=== PATIENT | female | born 1935 | race Hispanic/Latino ===

== ENCOUNTER 2017-11-07 20:29 | Inpatient (IN) | payer OTHER ==
[~2017-11-07] VITALS: Ht 154.9 cm; Wt 65.8 kg
[2017-11-07 21:23] LABS: ABSOLUTE BASOPHIL COUNT 0.1 /CUMM (0.0-0.2); ABSOLUTE EOSINOPHIL COUNT 0.2 /CUMM (0.0-0.7); ABSOLUTE GRANULOCYTE CT 6.8 /CUMM (1.4-6.5); ABSOLUTE LYMPH COUNT 1.6 /CUMM (1.2-3.4); ABSOLUTE MONOCYTE COUNT 0.9 /CUMM (0.10-0.60); BASOPHIL % 1.5 % (0.0-2.0); EOSINOPHIL % 2.3 % (0-5); GRANULOCYTE % 70.5 % (42.2-75.2); MEAN CORPUSCULAR HGB 27.6 PG (27.0-31.0); MEAN CORPUSCULAR HGB CONC 32.8 G/DL (33.0-37.0); MEAN CORPUSCULAR VOLUME 84.3 FL (81.0-99.0); MEAN PLATELET VOLUME 6.9 FL (7.4-10.4); PLATELET COUNT 511 /CUMM (130-400); RBC DISTRIBUTION WIDTH 13.9 % (11.5-14.5); RED BLOOD CELL CT 3.92 /CUMM (4.20-5.40); WHITE BLOOD CELL COUNT 9.6 /CUMM (4.8-10.8)
--- NOTE | 2017-11-07 21:29 | ED DYSPNEA/ASTHMA COMPLAINT ---
History of Present Illness General Chief Complaint: Dyspnea (COPD, CHF, Other) Stated Complaint: DIFF BREATHING Source: patient, family Exam Limitations: language barrier Vital Signs & Intake/Output Vital Signs & Intake/Output Vital Signs Date Time Temp Pulse Resp B/P B/P Pulse O2 O2 Flow FiO2 Mean Ox Delivery Rate 11/07 2239 95 18 169/73 99 Nasal 3.0L Cannula 11/078 98 Nasal 2.0L Cannula 11/071 86 Room Air 11/07 2037 96.9 107 18 194/79 95 Nasal 2.0L Cannula ED Intake and Output 11/08 0000 11/07 1200 Intake Total Output Total Balance Patient 132 lb Weight Weight Reported by Patient Measurement Method Allergies Coded Allergies: NO KNOWN ALLERGIES (12/18/12) Triage Note: PT FROM HOME C/O SOB THAT BEGAN 4 DAY PRIOR THAT HAS PROGRESSIVELY GOTTEN WORSE. PT DOES NOT SPEAK ARGENTINE. PT HAS 2 DAUGHTERS WITH HER THAT ARE TRANSLATING FOR HER. PTS DAUGHTER STATES FEBRILE 2 DAYS AGO, AFEBRILE IN TRIAGE 96.9. PTS DAUGHTER STATES PT MEDICATED WITH TYLENOL COLD AND FLU EVERY 6 HRS LAST MEDICATED WITH IN THE AM. PT AT LABORATORY TESTER 86% ON RA. IN TRIAGE PT PLACED ON NC 2L 02 95%. PT ABLE TO SPEAK IN FULL SENTENCES, NO ACUTE DISTRESS NOTED. PTS BP ELEVATED 194/79 WITH HX OF. Triage Nurses Notes Reviewed? yes Onset: Abrupt Duration: day(s): (4), constant, continues in ED, getting worse Timing: single episode today Severity: mild, moderate Activities at Onset: none Prior Episodes/Possible Cause: occasional episodes Modifying Factors: Improves With: rest. Worsens With: movement. Associated Symptoms: cough, wheezing, weakness LMP (ages 10-50): post menopausal, unknown : No Patient currently breastfeeds: No HPI: 82-year-old female past medical history of hypertension, hyperlipidemia, COPD presents for evaluation of cough and shortness of breath. Patient reports symptoms started about 4 days ago and persistent. She reports a cough productive of yellow sputum and wheezing. She'll using her inhalers without any improvement. She uses oxygen at nighttime only 2 L nasal cannula however over the past few days she has required oxygen 24 7. She reports that shortness breath gets worse on exertion improved somewhat at rest but is present constantly. No hemoptysis or chest pain she does report some congestion and low -grade temps at home. No lower extremity edema and surgery recent trauma. No chest pain. She does not have a SIG cardiac history. (Stefano Baker) Past History Travel History Traveled to [place] past 21 day No Medical History Any Pertinent Medical History? see below for history Cardiovascular: hypertension, hyperlipidemia Respiratory: COPD History of MRSA: No History of VRE: No History of CDIFF: No Surgical History Surgical History: non-contributory Psychosocial History Who do you live with Family Services at Home None What is your primary language Frisian Tobacco Use: Never used Family History Hx Contributory? No (Stefano Baker) Review of Systems Review of Systems Constitutional: Reports: fever, malaise, weakness. EENTM: Reports: nasal congestion. Respiratory: Reports: see HPI, cough, short of breath, sputum production, wheezing. Cardiovascular: Reports: no symptoms. GI: Reports: no symptoms. Genitourinary: Reports: no symptoms. Musculoskeletal: Reports: no symptoms. Skin: Reports: no symptoms. Neurological/Psychological: Reports: no symptoms. Hematologic/Endocrine: Reports: no symptoms. Immunologic/Allergic: Reports: no symptoms. All Other Systems: Reviewed and Negative (Stefano Baker) Physical Exam Physical Exam General Appearance: well developed/nourished, no apparent distress, alert, awake Head: atraumatic, normal appearance Eyes: Bilateral: normal appearance, PERRL, EOMI. Ears, Nose, Throat: normal pharynx, normal ENT inspection, hearing grossly normal Neck: normal inspection, supple, full range of motion Respiratory: chest non-tender, no respiratory distress, rhonchi, wheezing Cardiovascular: regular rate/rhythm, normal peripheral pulses Peripheral Pulses: 2+ radial (R), 2+ radial (L) Gastrointestinal: normal bowel sounds, soft, non-tender, no organomegaly Extremities: normal inspection, normal range of motion, no edema Neurologic/Psych: no motor/sensory deficits, awake, alert, oriented x 3, normal gait (BECOME DYSPNIC ) Skin: intact, normal color, warm/dry Lymphatic: no anterior cervical kayleigh Core Measures ACS in differential dx? No CVA/TIA Diagnosis No Sepsis Present: No Sepsis Focused Exam Completed? No (Stefano Baker) Progress Differential Diagnosis: asthma, AMI, bronchitis, costochondritis, CHF, COPD, musculoskeletal pain, pulmonary embolism, pneumonia, pneumothorax, unstable angina Plan of Care: Orders Procedure Date/time Status D-DIMER 11/08 2043 Complete URINALYSIS 11/07 2042 Active TROPONIN LEVEL 11/07 2042 Complete COMPREHENSIVE METABOLIC PANEL 11/07 2042 Complete CBC WITHOUT DIFFERENTIAL 11/07 2042 Complete EKG 11/07 2042 Active Laboratory Tests 11/07/172114: Anion Gap 10, Estimated GFR 60, BUN/Creatinine Ratio 12.2, Glucose 120 H, Calcium 8.7, Total Bilirubin 0.4, AST 29, ALT 35, Alkaline Phosphatase 101, Troponin I < 0.01, Total Protein 6.8, Albumin 3.3 L, Globulin 3.5, Albumin/ Globulin Ratio 0.9 L, D-Dimer High Sensitivty 349 H, CBC w Diff NO MAN DIFF REQ, RBC 3.92 L, MCV 84.3, MCH 27.6, MCHC 32.8 L, RDW 13.9, MPV 6.9 L, Gran % 70.5, Lymphocytes % 16.2 L, Monocytes % 9.5 H, Eosinophils % 2.3, Basophils % 1.5, Absolute Granulocytes 6.8 H, Absolute Lymphocytes 1.6, Absolute Monocytes 0.9 H, Absolute Eosinophils 0.2, Absolute Basophils 0.1 Patient seen and evaluated. She is here with wheezing rhonchi shortness of breath. Symptoms worse on exertion. 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 We 'll check basic labs chest x-ray patient indicated with DuoNeb Solu-Medrol Zithromax. Blood work does not show any significant acute findings. She does have mildly elevated platelets age-adjusted d-dimer is negative troponin negative remaining blood work is not showing any significant acute changes. Chest x-ray is clear. EKG shows nonspecific ST-T wave changes but shows improvement from previous. Patient was ambulated in the emergency department and desaturated to 90% on room air. She became visibly dyspneic. She will be admitted to the hospital for further evaluation and treatment of his COPD exacerbation. She'll require IV antibiotics and IV Solu-Medrol and DuoNeb's pulmonary consult serial labs. Case discussed with Dr. BAUTISTA HE agrees. Diagnostic Imaging: Viewed by Me: Radiology Read. Discussed w/RAD: Radiology Read. CXR Impression: PATIENT: BIB HERNANDEZ PRESENT AGE: 82 PATIENT ACCOUNT NO: [id number] : 35 LOCATION: [facility] ORDERING PHYSICIAN: Stefano BOBBY SERVICE DATE: 11/07/17 EXAM TYPE: RAD - XRY-PORTABLE CHEST XRAY EXAMINATION: XR PORTABLE CHEST CLINICAL INFORMATION: 82-year-old woman with shortness of breath. COMPARISON: 01/14/2016 chest radiograph, [address] TECHNIQUE: Portable frontal view of the chest was obtained. FINDINGS: There is stable irregular biapical parenchymal scarring. A known right lower lobe pulmonary nodule is not visible radiographically. The lungs are hyperinflated. No definite focal consolidation or overt edema is appreciated. Cardiomediastinal contours are within the range of normal. There are no large pleural effusions. IMPRESSION: No radiographic evidence of an acute cardiopulmonary process. DICTATED BY: Araceli Davenport MD DATE/TIME DICTATED:11/07/172137 CLINICAL CYTOGENETICIST SCIENTIST:MARCELLO DATE/TIME TRANSCRIBED:11/07/172137 CONFIDENTIAL, DO NOT COPY WITHOUT APPROPRIATE AUTHORIZATION. <Electronically signed in Other Vendor System> SIGNED BY: Araceli Davenport MD 11/07/172143 Initial ED EKG: normal sinus rhythm (RATE 97), NON-SPECIFIC T WAVE ABN ANT-LAT LEADS (Stefano Baker) Departure Departure Disposition: STILL A PATIENT Condition: Stable Clinical Impression Primary Impression: COPD exacerbation Referrals: Destini Abbasi (PCP/Family) Departure Forms: Customer Survey General Discharge Information Admission Note Spoke With: Jarred BURNHAM,[place] Documentation of Exam: Documentation of any treatments & extenuating circumstances including Concerns Regarding Discharge (functional status, medication knowledge or non-compliance, living conditions, etc.) that warrant an admission rather than observation: [IV antibiotics, IV Solu-Medrol, DuoNeb's, pulmonology, serial labs, monitoring of vital signs, oxygen adjustment, medication adjustment. Patient desaturated to 90% on room air while walking she became visibly dyspneic] (Stefano Baker) PA/SMALL MACHINE BINDERY OPERATOR Co-Sign Statement Statement: ED Attending supervision documentation- x I saw and evaluated the patient. I have also reviewed all the pertinent lab results and diagnostic results. I agree with the findings and the plan of care as documented in the PA's/SMALL MACHINE BINDERY OPERATOR's documentation. COPD with GARCIA, increased work of breathing at rest. [] I have reviewed the ED Record and agree with the PA's/SMALL MACHINE BINDERY OPERATOR's documentation. [] Additions or exceptions (if any) to the PAs/SMALL MACHINE BINDERY OPERATOR's note and plan are summarized below: [] (Basilia BURNHAM,Donald) Critical Care Note Critical Care Note Critical Care Time: non-applicable (Stefano Baker)
--- NOTE | 2017-11-07 21:44 | RADIOLOGY REPORT ---
EXAMINATION: XR PORTABLE CHEST CLINICAL INFORMATION: 82-year-old woman with shortness of breath. COMPARISON: 01/14/2016 chest radiograph, 08/16/[address] TECHNIQUE: Portable frontal view of the chest was obtained. FINDINGS: There is stable irregular biapical parenchymal scarring. A known right lower lobe pulmonary nodule is not visible radiographically. The lungs are hyperinflated. No definite focal consolidation or overt edema is appreciated. Cardiomediastinal contours are within the range of normal. There are no large pleural effusions. IMPRESSION: No radiographic evidence of an acute cardiopulmonary process.
--- NOTE | 2017-11-07 23:47 | History & Physical ---
Lety Candelaria MD,[facility] 11/07/17 8129: General Information and HPI MD Statement: I have seen and personally examined BIB HERNANDEZ and documented this H&P. The patient is a 82 year old F who presented with a patient stated chief complaint of [dyspnea]. Source of Information: patient, family Exam Limitations: language barrier History of Present Illness: Patient is a Georgian speaking 82 Y F with PMH of HTN, Hlip, COPD (on 2L o2 at night time, follows Dr. Briggs), glaucoma presented to the ED with CC of shortness of breathing. Patient is a Georgian-speaking and daughter present at the bedside contributing in history taking. Basically patient reported symptoms of upper respiratory tract infection, sneezing about 1 week ago. She also had fever of 101 and chills. For the last 2 days patient had increased shortness of breathing, weakness, cough associated with wide/greenish sputum. She used inhalers with no improvement, and she needed to use O2 supplement all the time for the last 2 days. She did not visited any doctor for URTI and was taking tynelol and OTC cold medications. With worsening of the symptoms she decided to come to ED. She denied any chest pain, however reported mild shortness with cough. She had nausea but no vomiting. She was also in contact with family member with upper respiratory tract infection symptoms. In baseline patient is lives with her daughters and is pretty independent in ADLs. Last Echo in 2012 normal EF with upper limit normal pulm HTN. She denied any history of actively smoking. Allergies/Medications Allergies: Coded Allergies: NO KNOWN ALLERGIES (12/18/12) Past History Travel History Traveled to [place] past 21 day No Medical History Cardiovascular: hypertension, hyperlipidemia Respiratory: COPD History of MRSA: No History of VRE: No History of CDIFF: No Surgical History Surgical History: non-contributory Past Family/Social History Psychosocial History Services at Home: None Review of Systems Review of Systems Constitutional: Reports: see HPI. Exam & Diagnostic Data Last 24 Hrs of Vital Signs/I&O Vital Signs Date Time Temp Pulse Resp B/P B/P Pulse O2 O2 Flow FiO2 Mean Ox Delivery Rate 11/08 0233 98.2 103 20 186/82 97 11/08 0103 96.8 100 18 173/72 97 Nasal 2.0L Cannula 11/07 2238 95 18 169/73 99 Nasal 3.0L Cannula 11/08 2147 98 Nasal 2.0L Cannula 11/07 2040 86 Room Air 11/07 2037 96.9 107 18 194/79 95 Nasal 2.0L Cannula Intake & Output 11/08 0800 11/08 0000 11/07 1600 Intake Total Output Total Balance Patient 132 lb Weight Weight Reported by Patient Measurement Method Physical Exam General Appearance Alert, Oriented X3, Cooperative, No Acute Distress Skin Temp/Moisture Exam: Warm/Dry Sepsis Skin Exam (color): Normal for Ethnicity HEENT Atraumatic, EOMI, pupils reactive Cardiovascular Normal S1, Normal S2 Lungs wheezing bilateral Abdomen Soft, No Tenderness Neurological Normal Speech Extremities No Edema Last 24 Hrs of Labs/[place]: Laboratory Tests 11/07/172114: Anion Gap 10, Estimated GFR 60, BUN/Creatinine Ratio 12.2, Glucose 120 H, Calcium 8.7, Total Bilirubin 0.4, AST 29, ALT 35, Alkaline Phosphatase 101, Troponin I < 0.01, Total Protein 6.8, Albumin 3.3 L, Globulin 3.5, Albumin/ Globulin Ratio 0.9 L, D-Dimer High Sensitivty 349 H, CBC w Diff NO MAN DIFF REQ, RBC 3.92 L, MCV 84.3, MCH 27.6, MCHC 32.8 L, RDW 13.9, MPV 6.9 L, Gran % 70.5, Lymphocytes % 16.2 L, Monocytes % 9.5 H, Eosinophils % 2.3, Basophils % 1.5, Absolute Granulocytes 6.8 H, Absolute Lymphocytes 1.6, Absolute Monocytes 0.9 H, Absolute Eosinophils 0.2, Absolute Basophils 0.1 Microbiology 11/08 154 URINE ROUT: Legionella Antigen - ORD 11/08 154 URINE ROUT: Streptococcus pneumoniae Antigen (M - ORD Assessment/Plan Assessment: Patient is a Georgian speaking 82 Y F presented with worsening of shortness of breathing Cough and sputum Upper respiratory tract infection, fever last week PMH: HTN, Hlip, COPD (on 2L o2 at night time, follows Dr. Briggs), glaucoma presented to the ED with CC of shortness of breathing. VS, Ph Ex at admission: BP 194/79 (improved to 165/73), no fever, DC 107, RR 18, saturation 86% in room air, improved to more than 90% with 3 L Labs at admission: Hgb 10.8, Plt 511 WBC 9.6 D Dimer 349 BEP not significnat, bicarbonate 34 Imagings at admission: CXR: No radiographic evidence of an acute cardiopulmonary process. Patient was admitted to GM floor for management of following conditions: Acute hypoxic respiratory failure (increased o2, increased bicarb) COPD exacerbation (most likely related to recent URTI) Chronic medical conditions - admit to GM floor - Vital signs/ O2 supplement - IV solumedrol - Ceftriaxone and Azithromycin IV - TRC nebs - Continue home medications per Claim history for now - confirm home medication in the a.m. DNR/DNI DVT ppx: ALPS and pharmacological Heart healthy As Ranked By This Provider Problem List: 1. COPD exacerbation Core Measures/Misc (03/15) Acute Coronary Syndrome ACS Diagnosis: No Congestive Heart Failure Congestive Heart Failure Diagnosis No Cerebrovascular Accident CVA/TIA Diagnosis: No VTE (View Protocol) VTE Risk Factors Age>40 No Mechanical VTE Prophylaxis d/t N/A MechProphylax Ordered No VTE Pharm Prophylaxis d/t NA PharmProphylax ordered Sepsis (View protocol) Sepsis Present: No Robby BURNHAM,[facility] 11/08/17 0322: Resident Review Statement Resident Statement: examined this patient, discussed with nurse intern, agreed with nurse intern, discussed with family, discussed with nursing Other Findings: Patient is a 82-year-old female with past medical history significant for COPD on 2 L oxygen nocturnal, hypertension, hyperlipidemia, glaucoma who presented to ED with chief complaint of shortness of breath and weakness. History was obtained from patient's daughters because of language barrier. They reported that 7 days ago patient started to have symptoms of upper respiratory tract infection, fever, chills, weakness, productive cough of white/yellow sputum, progressive worsening shortness of breath for which she started to use the oxygen supplementation the whole day long in stead of only nocturnal however no increase on oxygen liters. Today her family reported that patient was having severe shortness of breath to a level that she was not able to walk and asked them to bring her to hospital for evaluation. Patient has been using over-the- counter Tylenol cold and flu and home inhalers with minimal improvement. Problem list COPD exacerbation Acute on top of chronic hypoxic respiratory failure (patient desat on ambulation in ED) Upper respiratory tract infection Hypertension, hyperlipidemia Plan Admit to general medical floor Vitals every shift TRC Continue home medication Symbicort, Spiriva, albuterol Solu-Medrol 40 mg q. 8 Azithromycin IV daily Streptococcal and Legionella urine antigen Sputum culture Repeat CBCs and BMP in a.m. Family does not have medication list, medication was ordered based on reclaim history. Please confirm medication in a.m. from [facility] [place] Diet heart healthy DVT prophylaxis Lovenox, Alps Code DNR/DNI Jarred BURNHAM, [facility] 11/08/17 0434: Attending MD Review Statement Attending Statement Attending MD Statement: examined this patient, discuss w/resident/PA/NEWS CORRESPONDENT, agreed w/resident/PA/NEWS CORRESPONDENT, discussed with family, reviewed images, amended to note Attending Assessment/Plan: 82 yo Georgian speaking F with h/o COPD on nocturnal 2L O2, HTN, glaucoma, is here for evaluation of productive cough and exertional dyspnea. URI symptoms started 1 week ago, with congestion, fever (100.4), bodyaches, cough for which patient tried OTC meds (tylenol, cold and flu) without relief. She has been using her inhalers TID and is also using her oxygen throughout the day. Her dyspnea got worse today and hence family brought her to the ER. Sick contact +. No recent travel. Never smoker. Received flu and pneumonia vaccines. Never intubated. She follows Dr. Briggs for Pulm and Dr. Kerr for Cardio. Vitals stable, sats were 86% RA --> 98% on 2L. She desated to 90% on ambulation and was clinically tachypneic. Exam as above. Labs: no leukocytosis, H/H 10.8/33 , Plt 511, bicarb 34, glucose 120, trop neg. CXR: no acute process, stable irregular biapical parenchymal scarring, known RLL lung nodule, lungs are hyperinflated. CT chest (Jul 2017): stable chronic lung changes, stable nodular thickening, stable RLL nodule. EKG: sinus rhythm, TWI in I, aVL (old), Qtc 442. Echo (2012): EF > 65%, stage 1 diastolic dysfunction. PFT (2016): could not be completed as patient unable to perform. Assessment and plan: 1. Acute on chronic hypoxic respiratory failure 2. Acute bronchitis with COPD exacerbation 3. Hypertension uncontrolled 4. Hyperlipidemia - Admit to General medicine - Sputum culture - TRC nebs scheduled and PRN - IV solumedrol 40 Q8 - IV azithro for 5 days - Add mucinex - Continue symbicort, hold spiriva while on ipratropium - Resume home meds amlodipine and losartan - Check baseline ABG (given hypercarbia) - Consider Pulm consult if her symptoms do not improve DVT ppx Lovenox. DNR/I.
[2017-11-08 02:33] VITALS: BP 186/82
--- NOTE | 2017-11-08 04:35 | Admission Certification ---
Admission Certification Certification Statement - As attending physician, I certify that at the time of - admission, based on clinical presentation, severity of - symptoms, need for further diagnostic testing and - therapeutic interventions, and risk of adverse outcomes - without in-hospital treatment, in my clinical assessment, - this patient requires an acute hospital stay for a minimum - of two nights or longer. I have also considered psychsocial - factors such as support system, advanced age, financial - issues, cognitive issues, and failed out-patient treatments, - past re-admission history, safety of patient, and lack of - compliance as applicable. Specific rationale supporting this admission is: Acute on chronic hypoxic respiratory failure, COPD exacerbation.
[2017-11-08 06:08] VITALS: BP 166/78
--- NOTE | 2017-11-08 08:39 | PN- Housestaff ---
[facility] Subjective Follow-up For: Acute on chronic hypoxic respiratory failure due to COPD exacerbation. Subjective: No overnight events. Patient remained afebrile overnight. Seen and examined this morning. She denied any chest pain, palpitation, nausea, vomiting, abdominal pain and dysuria. Patient is at her baseline 2 L of oxygen and maintaining saturation 98%. Patient is feeling much improved today. She is still having little chest congestion. Patient is walking independently at home. Review of Systems Constitutional: Denies: chills, fever. EENTM: Reports: no symptoms. Cardiovascular: Denies: chest pain, orthopena, palpitations. Respiratory: Reports: short of breath, sputum production. Denies: cough. Gastrointestinal: Denies: abdominal pain, constipation, diarrhea, bowel incontinence, melena, vomiting. Genitourinary: Reports: no symptoms. Neurological/Psychological: Reports: no symptoms. Objective Last 24 Hrs of Vital Signs/I&O Vital Signs Date Time Temp Pulse Resp B/P B/P Pulse O2 O2 Flow FiO2 Mean Ox Delivery Rate 11/08 0608 98.0 95 20 166/78 98 11/08 0318 186/82 11/08 0318 186/82 11/08 0239 Nasal 2.0L Cannula 11/08 0233 98.2 103 20 186/82 97 11/08 0103 96.8 100 18 173/72 97 Nasal 2.0L Cannula 11/07 2239 95 18 169/73 99 Nasal 3.0L Cannula 11/07 2148 98 Nasal 2.0L Cannula 11/07 2041 86 Room Air 11/07 2037 96.9 107 18 194/79 95 Nasal 2.0L Cannula Intake & Output 11/08 1600 11/08 0800 11/08 0000 Intake Total Output Total 300 Balance -300 Output, Urine 300 Patient 145 lb 132 lb Weight Weight Bed scale Reported by Patient Measurement Method Physical Exam General Appearance: Alert, Oriented X3, Cooperative Skin: No Rashes Sepsis Skin Exam (color): Normal for Ethnicity HEENT: Atraumatic, PERRLA, EOMI Neck: Supple Cardiovascular: Normal S1, Normal S2 Lungs: EXPIRATORY WHEEZING ON RIGHT SIDE Abdomen: Soft, No Tenderness Neurological: Normal Speech, Strength at 5/5 X4 Ext, Normal Tone Extremities: No Edema Assessment/Plan Assessment: 82 YO Serbian speaking F with PMH of COPD on nocturnal 2L O2, HTN, glaucoma, is here for evaluation of productive cough and exertional dyspnea. URI symptoms started 1 week ago, with congestion, fever (100.4), bodyaches, cough for which patient tried OTC meds (tylenol, cold and flu) without relief. She has been using her inhalers TID and is also using her oxygen throughout the day. Her dyspnea got worse today and hence family brought her to the ER. We are seeing the patient following problems: Acute on chronic hypoxic respiratory failure due to COPD exacerbation secondary to acute bronchitis: -Continue supplemental oxygen as needed. Patient is using 2 L of oxygen that's her baseline and maintaining saturation 98%. -TRC nebulization as needed -Continue Symbicort and Spiriva -Continue Solu-Medrol 40 mg IV 8 hourly -Continue azithromycin for 5 days. Day 2 -And strep and Legionella are pending -We will get sputum for sputum culture. -Continue Mucinex for cough -Patient is feeling much improved today. Thrombocytosis: -Possibly reactionary. Her platelet count was 511 on admission -We will monitor her platelet count. History of hypertension and hyperlipidemia: -Continue losartan 100 mg and amlodipine -Continue Lipitor DVT prophylaxis: Mechanical and subcutaneous Lovenox CODE STATUS: DNR/intubation Problem List: 1. COPD exacerbation Pain Ratin Pain Location: none Pain Goal: Remain pain free Pain Plan: pain pathway Tomorrow's Labs & Rationales: hugo Monzon MD,Alejandrinagordon 11/08/17 1221: Attending MD Review Statement Attending Statement Attending MD Statement: examined this patient, discuss w/resident/PA/LUNCHROOM WORKER, agreed w/resident/PA/LUNCHROOM WORKER, reviewed EMR data (avail), discussed with nursing, discussed with case mgmt, amended to note Attending Assessment/Plan: Patient seen and examined. Sitting up comfortably in chair not in any acute distress. Family present at the bedside. She reports feeling better compared to presentation. Denies any cough or shortness of breath at rest. Denies palpitations. She is maintaining saturation on 2 L of oxygen. Family reports that patient is usually on oxygen only at night at home. On examination she is not in any respiratory distress. She has adequate entry bilaterally with mild expiratory rhonchi. Plan: Continue patient on current regimen with bronchodilators and systemic steroids. If she continues to do well clinically we may taper down her steroids tomorrow to every 12 hours. Change azithromycin to oral route. Mobilize patient as tolerated. She has history of chronic anemia. Hemoglobin level is stable. Check iron profile.
[2017-11-08 14:53] VITALS: BP 130/78
[2017-11-08] MEDS ORDERED: ALPHAGAN P5 M1 OPH (19:37)
[2017-11-08 21:22] VITALS: BP 141/70
[2017-11-09 06:21] VITALS: BP 138/66
--- NOTE | 2017-11-09 06:57 | PN- Housestaff ---
Subjective Follow-up For: Acute on chronic hypoxic respiratory failure due to COPD exacerbation secondary to acute bronchitis Subjective: No overnight events. Patient remained afebrile. she is seen and examined this morning. She denied any chest pain, nausea, vomiting, abdominal pain and dysuria. Patient is on 2 L of oxygen that's her baseline. Patient having exertional dyspnea that's also her baseline. She is feeling much improved. We will ambulate her today and check her ambulatory and resting saturations. Review of Systems Constitutional: Denies: chills, fever. EENTM: Reports: no symptoms. Cardiovascular: Denies: chest pain, palpitations, peripheral edema. Respiratory: Reports: short of breath. Denies: cough, sputum production. Gastrointestinal: Denies: abdominal pain, constipation, diarrhea, nausea, vomiting. Genitourinary: Reports: no symptoms. Neurological/Psychological: Reports: no symptoms. Objective Last 24 Hrs of Vital Signs/I&O Vital Signs Date Time Temp Pulse Resp B/P B/P Pulse O2 O2 Flow FiO2 Mean Ox Delivery Rate 11/09 0951 68 134/80 11/09 0835 97 Nasal 2.0L Cannula 11/09 0800 95 Nasal 2.0L Cannula 11/09 0621 98.2 96 20 138/66 97 11/09 0000 Nasal 2.0L Cannula 11/08 2347 97 11/08 2122 98.1 96 20 141/70 88 11/08 2019 97 Nasal 2.0L Cannula 11/08 1601 98 Nasal 2.0L Cannula 11/08 1600 Nasal 2.0L Cannula 11/08 1453 97.8 95 20 130/78 98 Nasal Cannula 11/08 1352 Nasal 2.0L Cannula Intake & Output 11/09 1600 11/09 0800 11/09 0000 Intake Total 260 720 Output Total Balance 260 720 Intake, IV 20 Intake, Oral 240 720 Number 0 0 Bowel Movements Physical Exam General Appearance: Alert, Oriented X3, Cooperative Skin: No Rashes Skin Temp/Moisture Exam: Warm/Dry Sepsis Skin Exam (color): Normal for Ethnicity HEENT: Atraumatic, PERRLA, EOMI Neck: Supple Cardiovascular: Normal S1, Normal S2 Lungs: Clear to Auscultation Abdomen: Soft, No Tenderness Neurological: Normal Speech, Strength at 5/5 X4 Ext, Normal Tone Extremities: No Edema Assessment/Plan Assessment: 82 YO Macanese speaking F with PMH of COPD on nocturnal 2L O2, HTN, glaucoma, is here for evaluation of productive cough and exertional dyspnea. URI symptoms started 1 week ago, with congestion, fever (100.4), bodyaches, cough for which patient tried OTC meds (tylenol, cold and flu) without relief. She has been using her inhalers TID and is also using her oxygen throughout the day. Her dyspnea got worse today and hence family brought her to the ER. We are seeing the patient following problems: Acute on chronic hypoxic respiratory failure due to COPD exacerbation secondary to acute bronchitis: -Patient has past medical history of COPD and upper lobe fibrosis. He was admitted with COPD in 2012. -Patient is using 2 L of oxygen that's her baseline and maintaining saturation 97%. -TRC nebulization as needed -Continue Symbicort and Spiriva -Continue Solu-Medrol 40 mg BID. We will taper the steroids and tomorrow will change it to by mouth and send the patient on tapering dose of steroids. -Azithromycin oral 250mg daily to complete 5 days course. Day 3 -Her strep and Legionella antigens are negative -Patient is not bringing any phlegm so couldn't get any sputum cultures.. -Continue Mucinex for cough -Patient is feeling much improved today. She has exertional dyspnea that her baseline. We will plan to send the patient home on prednisone tapering dose tomorrow. Thrombocytosis: -Possibly reactionary. Her platelet count was 511 on admission. -Today her platelet count is 531. Elevated creatinine and BUN: -Possibly due to dehydration. We will encourage the patient to drink more water. We will monitor her creatinine level. He remained elevated tomorrow we will consider discontinuing her losartan. -Today her creatinine is 1.1 and BUN is 24 History of hypertension and hyperlipidemia: -Continue losartan 100 mg and amlodipine -Continue Lipitor DVT prophylaxis: Mechanical and subcutaneous Lovenox CODE STATUS: DNR/intub Problem List: 1. COPD exacerbation Pain Ratin Pain Location: none Pain Goal: Remain pain free Pain Plan: pain pathway Tomorrow's Labs & Rationales: BEP
[2017-11-09 08:10] LABS: ABSOLUTE BASOPHIL COUNT 0 /CUMM (0.0-0.2); ABSOLUTE EOSINOPHIL COUNT 0 /CUMM (0.0-0.7); ABSOLUTE LYMPH COUNT 1.1 /CUMM (1.2-3.4); ABSOLUTE MONOCYTE COUNT 0.3 /CUMM (0.10-0.60); BASOPHIL % 0 % (0.0-2.0); EOSINOPHIL % 0 % (0-5); MEAN CORPUSCULAR HGB 27.3 PG (27.0-31.0); MEAN PLATELET VOLUME 7.4 FL (7.4-10.4)
[2017-11-09 08:57] LABS: ABSOLUTE GRANULOCYTE CT 13.7 /CUMM (1.4-6.5); HEMATOCRIT 30.6 % (37-47); MEAN CORPUSCULAR HGB CONC 31.7 G/DL (33.0-37.0); MEAN CORPUSCULAR VOLUME 85.9 FL (81.0-99.0); PLATELET COUNT 531 /CUMM (130-400); RED BLOOD CELL CT 3.56 /CUMM (4.20-5.40)
[2017-11-09 09:02] LABS: GRANULOCYTE % 90.7 % (42.2-75.2); WHITE BLOOD CELL COUNT 15.1 /CUMM (4.8-10.8)
--- NOTE | 2017-11-09 12:03 | PN- Att Addend ---
Attending Addendum Attending Brief Note Patient seen and examined. Plan of care discussed with the medical team and the patient. Available lab work and radiology test reports were reviewed. Patient reports decrease in difficulty breathing. She denies any fever chills or chest pains. She appears comfortable and is sitting in chair. Her daughter is at the bedside. She is currently on 2 L of oxygen. Exam: General: Patient awake alert oriented without any distress CVS: S1 plus S2 without any murmur or gallops Chest: Few scattered crepitation without any wheeze. There is no respiratory distress. Abdomen: Soft non-tender, bowel sound present, no guarding or rebound RETAIL MANAGEMENT KEYHOLDER: Awake alert oriented without any focal neuro deficit and follows commands appropriately Extremities: No edema; no clubbing or cyanosis noted Assessment * Shorts of breath - patient never have been smoker therefore diagnosis COPD is suspected; however her CT scan in July has shown cystic changes as well as apical scarring and emphysematous changes. Note the CT scan also suggested bronchiectasis. * Hypoxia * Thrombocytosis * Acute renal failure * Dehydration Plan * Continue supportive care * Consider tapering off oxygen * Out of bed and ambulate * Continue Solu Medrol & azithromycin * Consider possible discharge tomorrow Current Medications Sig/Cuco Start time Last Medication Dose Route Stop Time Status Admin Acetaminophen 325 MG Q6P PRN 11/08 0200 AC PO Albuterol Sulfate 3 ML EVERY 4 HRS/AWAKE 11/08 1200 AC 11/09 INH 0834 Albuterol Sulfate 3 ML Q4H PRN 11/08 0200 AC INH Amlodipine Besylate 5 MG DAILY 11/08 0900 AC 11/09 PO 0951 Atorvastatin Calcium 20 MG 1700 11/08 1700 AC 11/08 PO 1638 Azithromycin 250 MG DAILY 11/09 0900 AC 11/09 PO 11/12 1100 0952 Azithromycin 500 MG DAILY 11/08 0900 DC 11/08 Sodium Chloride 250 ML IV 0949 Brimonidine Tartrate 1 GTT BID 11/08 2100 AC 11/09 OPH 0952 Budesonide/ 2 PUF BID 11/08 0900 AC 11/09 Formoterol Fumarate INH 0952 Enoxaparin Sodium 40 MG DAILY 11/08 0900 AC 11/09 SC 0951 Guaifenesin 600 MG Q12 11/08 0900 AC 11/09 PO 0952 Losartan Potassium 100 MG DAILY 11/08 09 AC 05/14 PO 0951 Methylprednisolone 40 MG 0600,1800 11/09 1800 AC IV Methylprednisolone 40 MG Q12 11/09 09 DC IV Methylprednisolone 40 MG Q8 11/08 06 DC 11/09 IV 0529 Tiotropium [place] 1 PUF DAILY 11/08 899 AC 11/09 INH 0952 Laboratory Tests 11/09/17 0612: Anion Gap 9, Estimated GFR 48 L, BUN/Creatinine Ratio 21.8, CBC w Diff NO MAN DIFF REQ, RBC 3.56 L, MCV 85.9, MCH 27.3, MCHC 31.7 L, RDW 14.0, MPV 7.4, Gran % 90.7 H, Lymphocytes % 7.2 L, Monocytes % 2.1, Eosinophils % 0, Basophils % 0 , Absolute Granulocytes 13.7 H, Absolute Lymphocytes 1.1 L, Absolute Monocytes 0.3, Absolute Eosinophils 0, Absolute Basophils 0 11/08/17 1035: pH 7.37, pCO2 58 H, pO2 116 H, HCO3 33 H, ABG O2 Sat (Measured) 98.0, P-50 ( Temp Corrected) N, Carboxyhemoglobin 0.1 L, O2 Concentration % 2LPM, O2 Delivery Method NC, Phlebotomy Draw Site RIGHT RADIAL 11/08/17 0730: Urine Color YEL, Urine Clarity CLEAR, Urine pH 6.5, Ur Specific Lewis 1.010, Urine Protein NEG, Urine Ketones NEG, Urine Nitrite NEG, Urine Bilirubin NEG, Urine Urobilinogen 0.2, Ur Leukocyte Esterase NEG, Ur Microscopic SEDIMENT EXAMINED, Urine RBC RARE, Urine Hemoglobin TRACE-INTACT, Urine Glucose NEG 11/07/17 2115: Anion Gap 10, Estimated GFR 60, BUN/Creatinine Ratio 12.2, Glucose 120 H, Calcium 8.7, Iron 27 L, TIBC 231 L, Ferritin 153.0, Total Bilirubin 0.4, AST 29, ALT 35, Alkaline Phosphatase 101, Troponin I < 0.01, Total Protein 6.8, Albumin 3.3 L, Globulin 3.5, Albumin/Globulin Ratio 0.9 L, D-Dimer High Sensitivty 349 H, CBC w Diff NO MAN DIFF REQ, RBC 3.92 L, MCV 84.3, MCH 27.6, MCHC 32.8 L, RDW 13.9, MPV 6.9 L, Gran % 70.5, Lymphocytes % 16.2 L, Monocytes % 9.5 H, Eosinophils % 2.3, Basophils % 1.5, Absolute Granulocytes 6.8 H, Absolute Lymphocytes 1.6, Absolute Monocytes 0.9 H, Absolute Eosinophils 0.2, Absolute Basophils 0.1 Microbiology 11/08 1000 LOWER RESP: Respiratory Culture - CAN Cancelled: NUMBER OF SQUAMOUS CELLS INDICATES POOR QUALITY SPECIMEN 11/08 1000 LOWER RESP: Gram Stain - CAN Cancelled: NUMBER OF SQUAMOUS CELLS INDICATES POOR QUALITY SPECIMEN 11/08 729 URINE ROUT: Legionella Antigen - COMP 11/08 729 URINE ROUT: Streptococcus pneumoniae Antigen (M - COMP Vital Signs Date Time Temp Pulse Resp B/P B/P Pulse O2 O2 Flow FiO2 Mean Ox Delivery Rate 11/09 0951 68 134/80 11/09 0835 97 Nasal 2.0L Cannula 11/09 0800 95 Nasal 2.0L Cannula 11/09 0621 98.2 96 20 138/66 97 11/09 0000 Nasal 2.0L Cannula 11/08 2347 97 11/08 2122 98.1 96 20 141/70 88 11/08 2019 97 Nasal 2.0L Cannula 11/08 1601 98 Nasal 2.0L Cannula 11/08 1600 Nasal 2.0L Cannula 11/08 1453 97.8 95 20 130/78 98 Nasal Cannula 11/08 1352 Nasal 2.0L Cannula Intake & Output 11/09 1600 11/09 0800 11/09 0000 Intake Total 260 720 Output Total Balance 260 720 Intake, IV 20 Intake, Oral 240 720 Number 0 0 Bowel Movements
[2017-11-09 14:08] VITALS: BP 138/60
[2017-11-09] MEDS ORDERED: AZITHROMYCIN250 M1 PO (19:33)
--- NOTE | 2017-11-09 19:34 | Patient Discharge Instructions ---
Discharge Instructions General Discharge Information You were seen/treated for: Acute on chronic hypoxic respiratory failure due to COPD exacerbation secondary to bronchitis. ZENA Watch for these problems: Shortness of breath, cough, sputum, wheezing, light headedness, desaturation, chest pain and palpitation. If you experience any of these symptoms please come to ED or call to your primary care physician. Special Instructions: Follow up with your primary care physician in one week. Follow up with your public relations assistant in one week. Her losartan dose was decreased to 50mg daily from 100mg daily and amlodipine was increased to 10mg from 5mg daily considering her worsening kidney funtion. -Blood pressure is better control on change in doses. -Please talk to pcp for your elevated platelet count and check cbc for platelet count. Diet Recommended Diet: Regular Activity Activity Self Limited: Yes Acute Coronary Syndrome Inclusion Criteria At DC or during hospital stay patient has or had the following: ACS DIAGNOSIS No Discharge Core Measures Meds if any: Prescribed or Continued at Discharge Meds if any: NOT Prescribed or Continued at Discharge Congestive Heart Failure Inclusion Criteria At DC or during hospital stay patient has or had the following: CHF DIAGNOSIS No Discharge Core Measures Meds if any: Prescribed or Continued at Discharge Meds if any: NOT Prescribed or Continued at Discharge Cerebrovascular accident Inclusion Criteria At DC or during hospital stay patient has or had the following: CVA/TIA Diagnosis No Discharge Core Measures Meds if any: Prescribed or Continued at Discharge Meds if any: NOT Prescribed or Continued at Discharge Venous thromboembolism Inclusion Criteria VTE Diagnosis No VTE Type NONE VTE Confirmed by (Test) NONE Discharge Core Measures - Per Current guidelines, there needs to be overlap - treatment for the first 5 days of Warfarin therapy. - If discharged on Warfarin prior to 5 days of - overlap therapy, the patient will need to be - assessed for post discharge needs including - *Post discharge parental anticoagulation - *Warfarin and/or parental anticoagulation education - *Follow up date to check INR post discharge At least 5 days overlap therapy as Inpatient No Meds if any: Prescribed or Continued at Discharge Note: Overlap Therapy is Warfarin and Anticoagulant Meds if any: NOT Prescribed or Continued at Discharge
[2017-11-09] MEDS ORDERED: LOSARTAN POTAS100 M1 PO (19:37)
[2017-11-09] MEDS ORDERED: AMLODIPINE BESYL5 M1 PO (19:37)
[2017-11-09] MEDS ORDERED: SIMVASTATIN40 M1 PO (19:38)
[2017-11-09] MEDS ORDERED: SYMBICORT 16010.2 GM INH (19:41)
[2017-11-09] MEDS ORDERED: ALBUTEROL2.5 MG/0.5 INH/SOL (19:43)
[2017-11-09] MEDS ORDERED: ALBUTEROL2.5 MG/3 M INH/SOL (19:45)
[2017-11-09 22:00] VITALS: BP 140/64
[2017-11-10] MEDS ORDERED: PREDNISONE10 M2 PO (05:08)
[2017-11-10 05:55] VITALS: BP 140/76
--- NOTE | 2017-11-10 07:07 | PN- Housestaff ---
Subjective Follow-up For: Acute on chronic hypoxic respiratory failure due to COPD exacerbation secondary to acute bronchitis Subjective: No overnight events. Patient remained afebrile,. Seen and examined this morning. She is Albanian-speaking lady, her daughter was on bedside and she translates. She denied chest pain, palpitation, nausea, vomiting, chills, fever , abdominal pain dysuria. Patient reported having exertional dyspnea that her baseline. She is using 2 L of oxygen and maintaining saturation 95%. Patient is eating and drinking well. She walked in the room. Review of Systems Constitutional: Denies: chills, fever. EENTM: Reports: no symptoms. Cardiovascular: Denies: chest pain, palpitations. Respiratory: Denies: cough, short of breath, sputum production. Gastrointestinal: Denies: abdominal pain, constipation, diarrhea, nausea, vomiting. Genitourinary: Reports: no symptoms. Neurological/Psychological: Reports: no symptoms. Objective Last 24 Hrs of Vital Signs/I&O Vital Signs Date Time Temp Pulse Resp B/P B/P Pulse O2 O2 Flow FiO2 Mean Ox Delivery Rate 11/10 0819 98 Nasal 2.0L Cannula 11/10 0555 98.1 100 22 140/76 95 Nasal 2.0L Cannula 11/10 0000 Room Air 11/09 2200 98.1 106 19 140/64 97 Nasal 2.0L Cannula 11/09 1848 98 Nasal 2.0L Cannula 11/09 1600 96 Nasal 2.0L Cannula 11/09 1408 98.1 89 17 138/60 93 Nasal 3.0L Cannula 11/09 0951 68 134/80 11/09 0835 97 Nasal 2.0L Cannula Intake & Output 11/10 1600 11/10 0800 11/10 0000 Intake Total 300 Output Total Balance 300 Intake, IV 300 Physical Exam General Appearance: Alert, Oriented X3, Cooperative Skin Temp/Moisture Exam: Warm/Dry Sepsis Skin Exam (color): Normal for Ethnicity HEENT: Atraumatic, PERRLA, EOMI Neck: Supple Cardiovascular: Normal S1, Normal S2 Lungs: Clear to Auscultation, right side decreased breath sounds compare to left Abdomen: Soft, No Tenderness Neurological: Normal Speech, Strength at 5/5 X4 Ext, Normal Tone Extremities: No Edema Assessment/Plan Assessment: 82 YO Albanian speaking F with PMH of COPD on nocturnal 2L O2, HTN, glaucoma, is here for evaluation of productive cough and exertional dyspnea. URI symptoms started 1 week ago, with congestion, fever (100.4), bodyaches, cough for which patient tried OTC meds (tylenol, cold and flu) without relief. She has been using her inhalers TID and is also using her oxygen throughout the day. Her dyspnea got worse today and hence family brought her to the ER. We are seeing the patient following problems: Acute on chronic hypoxic respiratory failure due to COPD exacerbation secondary to acute bronchitis: -Patient has past medical history of COPD and upper lobe fibrosis. He was admitted with COPD in 2012. -Patient is using 2 L of oxygen that's her baseline and maintaining saturation 95%.Patient was using at night time but now she is using it all the time. During the day time we will taper it and try to keep her off o2 during the day. -TRC nebulization as needed -Continue Symbicort and Spiriva -We will start prednisone with tapering dose. -Azithromycin oral 250mg daily to complete 5 days course. Day 4 -Her strep and Legionella antigens are negative -Continue Mucinex for cough -Patient is on 2 L of oxygen and maintaining saturation 95%. She is feeling much improved. On room air at rest her sat was 88% and on ambulation 86%. Patient want to keep 2L o2 as she feels comfortable with that. Thrombocytosis: -Possibly reactionary. Her platelet count was 511 on admission. -Platelet count was 531 yesterday. Elevated creatinine and BUN: -Possibly due to dehydration. We will encourage the patient to drink more water. We will monitor her creatinine level. -Today her creatinine level is 1.2 and BUN is 33. Patient was hydrated with IV fluids yesterday even then her creatinine level is increasing. We will consider decrease losartan dose and increase the amlodipine. -Encourage patient to drink more water and will give her 1 bag of D5 half saline. History of hypertension and hyperlipidemia: -Losartan was decreased to 50mg daily due to worsening kidney function. -Amlodipine dose was increased to 10mg daily. -Continue Lipitor DVT prophylaxis: Mechanical and subcutaneous Lovenox CODE STATUS: DNR/intub Problem List: 1. COPD exacerbation Pain Ratin Pain Location: none Pain Goal: Remain pain free Pain Plan: pain pathway Tomorrow's Labs & Rationales: bep
--- NOTE | 2017-11-10 11:55 | PN- Att Addend ---
Attending Addendum Attending Brief Note Patient seen and examined. Plan of care discussed with the medical team and the patient. Available lab work and radiology test reports were reviewed. Patient reports decrease in difficulty breathing. She denies any fever chills or chest pains. She appears comfortable and is sitting in chair. Her daughter is at the bedside. She is currently on 2 L of oxygen. Exam: General: Patient awake alert oriented without any distress CVS: S1 plus S2 without any murmur or gallops Chest: Few scattered crepitation without any wheeze. There is no respiratory distress. Abdomen: Soft non-tender, bowel sound present, no guarding or rebound [employer]REGNATOR ELECT[employer]ACIT[employer]: Awake alert oriented without any focal neuro deficit and follows commands appropriately Extremities: No edema; no clubbing or cyanosis noted Assessment * Shortness of breath/ possible COPD exacerbation - patient never have been smoker therefore diagnosis COPD is suspect; however her CT scan in July has shown cystic changes as well as apical scarring and emphysematous changes. Note the CT scan also suggested bronchiectasis. * Hypoxia * Thrombocytosis * Acute renal failure * Dehydration Plan * Continue supportive care * Continue oxygen and arrange oxygen for home * Out of bed and ambulate * Consider changing Solu-Medrol and azithromycin to oral * IV fluids slowly 1 L and recheck creatinine tomorrow * Consider possible discharge tomorrow Current Medications Sig/Cuco Start time Last Medication Dose Route Stop Time Status Admin Acetaminophen 325 MG Q6P PRN 11/08 0200 AC PO Albuterol Sulfate 3 ML EVERY 4 HRS/AWAKE 11/08 1200 AC 11/10 INH 0817 Albuterol Sulfate 3 ML Q4H PRN 11/08 0200 AC INH Amlodipine Besylate 10 MG DAILY 11/10 0900 AC 11/10 PO 1053 Amlodipine Besylate 5 MG DAILY 11/08 0900 DC 11/09 PO 0951 Atorvastatin Calcium 20 MG 1700 11/08 1700 AC 11/09 PO 1635 Azithromycin 250 MG DAILY 11/09 0900 AC 11/10 PO 11/12 1100 0852 Brimonidine Tartrate 1 GTT BID 11/08 2100 AC 11/10 OPH 0852 Budesonide/ 2 PUF BID 11/08 0900 AC 11/10 Formoterol Fumarate INH 0853 Dextrose/Sodium 1,000 ML Q13H 11/10 0915 AC 11/10 Chloride IV 11/10 2214 1049 Enoxaparin Sodium 40 MG DAILY 11/08 0900 11/10 SC 0858 Guaifenesin 600 MG Q12 11/08 0900 AC 11/10 PO 0852 Losartan Potassium 50 MG DAILY 11/10 0900 AC 11/10 PO 1055 Losartan Potassium 100 MG DAILY 11/08 0900 DC 11/09 PO 0951 Methylprednisolone 40 MG 0600,1800 11/09 1800 DC 11/10 IV 0529 Patient Medication 1 ED ONE ONE 11/10 1000 HI 11/10 [facility] ED 11/10 1001 1103 Patient Medication 1 ED ONE ONE 11/09 1500 [facility] ED 11/09 1501 Prednisone 10 MG DAILY 11/21 0900 AC PO 11/22 0901 Prednisone 20 MG DAILY 11/19 0900 AC PO 11/20 09 Prednisone 30 MG DAILY 11/17 0900 AC PO 11/18 0901 Prednisone 40 MG DAILY 11/15 0900 AC PO 11/16 0901 Prednisone 50 MG DAILY 11/13 0900 AC PO 11/14 0901 Prednisone 60 MG DAILY 11/11 0900 CAN PO 11/23 0859 Prednisone 60 MG DAILY 11/11 0900 AC PO 11/12 0901 Sodium Chloride 1,000 ML Q13H 11/09 1600 DC 11/09 IV 11/10 0459 1635 Tiotropium [place] 1 PUF DAILY 11/08 0900 AC 11/10 INH 0853 Laboratory Tests 11/10/17 0632: Anion Gap 10, Estimated GFR 43 L, BUN/Creatinine Ratio 27.5 H 11/09/17 0612: Anion Gap 9, Estimated GFR 48 L, BUN/Creatinine Ratio 21.8, CBC w Diff NO MAN DIFF REQ, RBC 3.56 L, MCV 85.9, MCH 27.3, MCHC 31.7 L, RDW 14.0, MPV 7.4, Gran % 90.7 H, Lymphocytes % 7.2 L, Monocytes % 2.1, Eosinophils % 0, Basophils % 0 , Absolute Granulocytes 13.7 H, Absolute Lymphocytes 1.1 L, Absolute Monocytes 0.3, Absolute Eosinophils 0, Absolute Basophils 0 11/08/17 1035: pH 7.37, pCO2 58 H, pO2 116 H, HCO3 33 H, ABG O2 Sat (Measured) 98.0, P-50 ( Temp Corrected) N, Carboxyhemoglobin 0.1 L, O2 Concentration % 2LPM, O2 Delivery Method NC, Phlebotomy Draw Site RIGHT RADIAL 11/08/17 0730: Urine Color YEL, Urine Clarity CLEAR, Urine pH 6.5, Ur Specific [place] 1.010, Urine Protein NEG, Urine Ketones NEG, Urine Nitrite NEG, Urine Bilirubin NEG, Urine Urobilinogen 0.2, Ur Leukocyte Esterase NEG, Ur Microscopic SEDIMENT EXAMINED, Urine RBC RARE, Urine Hemoglobin TRACE-INTACT, Urine Glucose NEG 11/07/175: Anion Gap 10, Estimated GFR 60, BUN/Creatinine Ratio 12.2, Glucose 120 H, Calcium 8.7, Iron 27 L, TIBC 231 L, Ferritin 153.0, Total Bilirubin 0.4, AST 29, ALT 35, Alkaline Phosphatase 101, Troponin I < 0.01, Total Protein 6.8, Albumin 3.3 L, Globulin 3.5, Albumin/Globulin Ratio 0.9 L, D-Dimer High Sensitivty 349 H, CBC w Diff NO MAN DIFF REQ, RBC 3.92 L, MCV 84.3, MCH 27.6, MCHC 32.8 L, RDW 13.9, MPV 6.9 L, Gran % 70.5, Lymphocytes % 16.2 L, Monocytes % 9.5 H, Eosinophils % 2.3, Basophils % 1.5, Absolute Granulocytes 6.8 H, Absolute Lymphocytes 1.6, Absolute Monocytes 0.9 H, Absolute Eosinophils 0.2, Absolute Basophils 0.1 Microbiology 11/08 1000 LOWER RESP: Respiratory Culture - CAN Cancelled: NUMBER OF SQUAMOUS CELLS INDICATES POOR QUALITY SPECIMEN 11/08 1000 LOWER RESP: Gram Stain - CAN Cancelled: NUMBER OF SQUAMOUS CELLS INDICATES POOR QUALITY SPECIMEN 11/08 729 URINE ROUT: Legionella Antigen - COMP 11/08 729 URINE ROUT: Streptococcus pneumoniae Antigen (M - COMP Vital Signs Date Time Temp Pulse Resp B/P B/P Pulse O2 O2 Flow FiO2 Mean Ox Delivery Rate 11/10 1055 80 132/50 11/10 0937 20 95 Nasal 2.0L Cannula 11/10 0936 20 91 Nasal 2.0L Cannula 11/10 0935 20 86 Room Air 11/10 0934 20 88 Room Air 11/10 0819 98 Nasal 2.0L Cannula 11/10 0555 98.1 100 22 140/76 95 Nasal 2.0L Cannula 11/10 0000 Room Air 11/09 2200 98.1 106 19 140/64 97 Nasal 2.0L Cannula 11/09 1848 98 Nasal 2.0L Cannula 11/09 1600 96 Nasal 2.0L Cannula 11/09 1408 98.1 89 17 138/60 93 Nasal 3.0L Cannula Intake & Output 11/10 1600 11/10 0800 11/10 0000 Intake Total 300 Output Total Balance 300 Intake, IV 300
[2017-11-10 14:38] VITALS: BP 124/50
--- NOTE | 2017-11-10 16:00 | Discharge Summary ---
Visit Information Visit Dates Admission Date: 11/08/17 Discharge Date: 11/11/17 Hospital Course Course Attending Physician: Cezar BURNHAM,Magdy Primary Care Physician: Melissa BOBBY,Destini Rodriguez [facility] Course: 82 YO Greenlandic speaking F with PMH of COPD on nocturnal 2L O2, HTN, glaucoma, is here for evaluation of productive cough and exertional dyspnea. URI symptoms started 1 week ago, with congestion, fever (100.4), bodyaches, cough for which patient tried OTC meds (tylenol, cold and flu) without relief. She has been using her inhalers TID and is also using her oxygen throughout the day. Her dyspnea got worse today and hence family brought her to the ER. ED course: Vitals: Temperature 96.9, pulse 107, respiratory rate 18, blood pressure 190/79, oxygen saturation 95% reported some oxygen Labs: WBC count 9.6, hemoglobin 10.8, hematocrit 33.0, platelet count of 511, sodium 141, potassium 4.4, BUN 11, creatinine 0.9, glucose 120, calcium 8.7, AST 29, ALT 35, troponin less than 0.01 Acute on chronic hypoxic respiratory failure due to COPD exacerbation secondary to acute bronchitis: Patient was admitted with acute on chronic hypoxic respiratory failure due to COPD exacerbation secondary to acute bronchitis. Patient was given supplemental oxygen as needed to keep oxygen saturation above 92%. Her baseline is 2 L of oxygen only at nighttime but that this exacerbation she needs oxygen during daytime as she was desaturating. Patient was given IV Solu-Medrol and IV azithromycin, later on that were changed to oral prednisone on tapering dose and oral azithromycin for 5 days. Patient was given Mucinex for cough and TRC nebulization as needed. Patient's condition improved and she was feeling better. Her strep and Legionella urine antigen remained negative. Patient was not bringing any phlegm so the couldn't get any sputum cultures. Before discharging the patient her ambulatory sats were checked. On room air while ambulation she desaturated to 84% and at rest on room air she was saturating 90% . Patient was advised to use oxygen while ambulation to keep her oxygen saturation above 92%. Previously she was using only nighttime 2 L of oxygen. Patient was discharged on prednisone with quick tapering dose and one more dose of azithromycin to complete 5 days course. Patient was instructed to follow her family care physician within one week. ZENA: On admission her creatinine level was 0.9 but later on patient developed acute kidney injury. She met the criteria of a care as her creatinine level increased to 0.3 mg/dL and 48 hours. Possibly due to dehydration as patient was not drinking enough water and she was also on losartan 100 mg. Patient was given IV hydration and she was encouraged to drink more water. Her losartan dose was decreased to 50 mg every day. Nephrotoxic medications were provided. Her input output was monitored. Her urine output remained stable. Later on her creatinine level came back to 1.0 and her GFR improved. Thrombocytosis: Possibly reactionary. Her platelet count was 511 on admission. Later on it was 531. Patient was instructed to follow her primary care physician for follow-up and repeat CBC for platelet count. History of hypertension and hyperlipidemia: We continued her Lipitor for hyperlipidemia. Her losartan dose was decreased from 100 mg daily to 50 mg daily considering her acute kidney injury. Her amlodipine dose was increased from 5 mg to 10 mg to control blood pressure. With adjustment of the dose her blood pressure remained under control. Patient was instructed to follow her primary care physician for further adjustment of doses if needed according to her blood pressure. DVT prophylaxis: Mechanical and subcutaneous Lovenox CODE STATUS: DNR/intub Allergies: Coded Allergies: NO KNOWN ALLERGIES (12/18/12) Pertinent Lab Results: Chest x-ray on 11/07/2017: IMPRESSION: No radiographic evidence of an acute cardiopulmonary process. WBC count 15.1, hemoglobin 9.7, hematocrit 30.6, platelet count 531, sodium 143, potassium 4.5, BUN 28, creatinine 1.0 Disposition Summary Disposition Principal Diagnosis: Acute on chronic hypoxic respiratory failure due to COPD exacerbation secondary to bronchitis. ZENA Thrombocytosis Additional Diagnosis: History of hypertension and hyperlipidemia Discharge Disposition: home health services Discharge Instructions General Discharge Information Code Status: Do Not Resucitate/Intubat Patient's Diet: Heart healthy diet Patient's Activity: Self limited Follow-Up Instructions/Appts: Follow up with your primary care physician in one week. Follow up with your stationary engineer supervisor in one week. Her losartan dose was decreased to 50mg daily from 100mg daily and amlodipine was increased to 10mg from 5mg daily considering her worsening kidney funtion. -Blood pressure is better control on change in doses. -Please talk to pcp for your elevated platelet count and check cbc for platelet count. Medications at Discharge Discharge Medications: Continue taking these medications: Brimonidine Tartrate (Alphagan P) 0.1 % DROPS 1 Drop In the eye TWICE DAILY as needed for eye drops as needed Qty = 10 Comments: Last Taken:11/11/17 Time:0930 AM Simvastatin (Simvastatin*) 40 MG TABLET 1 Tablet ORAL DAILY Qty = 30 Comments: NOT GIVEN IN HOSPITAL Budesonide/Formoterol Fumarate (Symbicort 160-4.5 Mcg Inhaler) 160 MCG-4.5 MCG/ ACTUATION HFA.AER.AD 2 Puff Inhale through mouth TWICE DAILY Qty = 2 Comments: Last Taken:11/11/17 Time:0930 AM Albuterol Sulfate (Albuterol Sulfate) 2.5 MG/3 ML (0.083 %) VIAL.NEB 1 Vial Inhale Solution EVERY 4 HOURS NEEDED as needed for Shortness of breath Qty = 4 Comments: Last Taken:11/11/17 Time:0800 AM Tiotropium [place] (Spiriva) 18 MCG CAP.W.DEV 1 Capsule Inhale through mouth DAILY Qty = 30 Comments: Last Taken:11/11/17 Time:0930 AM Start taking the following new medications: Prednisone (Prednisone) 10 MG TABLET 0 ORAL DAILY Qty = 15 No Refills Instructions: On Take 5/17 50 MG 5/18 40 MG 5/19 30 MG 5/20 20 MG 5/21 10 MG Then Stop Comments: PREDNISONE TAPER 60 MG ON 11/11/17 AT 0930 AM Azithromycin (Azithromycin) 250 MG TABLET 1 Tablet ORAL DAILY Qty = 1 No Refills Instructions: . Comments: Last Taken:11/11/17 Time:0930AM The following medications have been changed: Old: Amlodipine Besylate (Amlodipine Besylate) 10 MG TABLET 1 Tablet ORAL DAILY Qty = 30 New: Amlodipine Besylate (Amlodipine Besylate) 10 MG TABLET 1 Tablet ORAL DAILY Qty = 30 Instructions: , Comments: Last Taken:11/11/17 Time:0930 AM Old: Losartan Potassium (Cozaar) 50 MG TABLET 1 Tablet ORAL DAILY Qty = 30 New: Losartan Potassium (Cozaar) 50 MG TABLET 1 Tablet ORAL DAILY Qty = 30 Instructions: . Comments: Last Taken:11/11/17 Time:0930 AM Copies To: Destini Abbasi
[2017-11-10 21:16] VITALS: BP 128/50
[2017-11-11 06:55] VITALS: BP 126/52
--- NOTE | 2017-11-11 07:09 | PN- Housestaff ---
Subjective Follow-up For: Acute on chronic hypoxic respiratory failure due to COPD exacerbation secondary to acute bronchitis. ZENA Subjective: No overnight events. Patient remained afebrile. Seen and examined this morning. Patient is Mohawk-speaking, her daughter was on the bedside who translate for her. Patient denied any chest pain, nausea, palpitation, vomiting , fever, chills, abdominal pain and dysuria. Patient is using 2 L of oxygen at nighttime that her baseline and maintaining saturation 98%. At home she was not using oxygen during daytime but in hospital she is using 2 L during daytime. Yesterday her saturation was 88% at rest and 86% on ambulation on room air. Patient is feeling comfortable using oxygen during daytime. Today ambulatory saturation on room air were checked and she desaturated to 84% on room air while ambulation. Patient needs oxygen during daytime while ambulation. Previously she was using oxygen during nighttime. Review of Systems Constitutional: Denies: chills, fever. EENTM: Reports: no symptoms. Cardiovascular: Denies: chest pain, palpitations. Respiratory: Denies: cough, short of breath, sputum production. Gastrointestinal: Denies: abdominal pain, diarrhea, nausea, vomiting. Genitourinary: Reports: no symptoms. Neurological/Psychological: Reports: no symptoms. Objective Last 24 Hrs of Vital Signs/I&O Vital Signs Date Time Temp Pulse Resp B/P B/P Pulse O2 O2 Flow FiO2 Mean Ox Delivery Rate 11/11 0755 95 Nasal 2.0L Cannula 11/11 0655 97.9 82 18 126/52 98 05/ 0000 93 Nasal 2.0L Cannula 11/10 2116 98.1 85 18 128/50 98 Nasal 2.0L Cannula 11/10 1618 100 Nasal 2.0L Cannula 11/10 1600 Nasal 2.0L Cannula 11/10 1438 98.1 85 18 124/50 99 Nasal 2.0L Cannula 11/10 1055 80 132/50 11/10 0937 20 95 Nasal 2.0L Cannula 11/10 0936 20 91 Nasal 2.0L Cannula 11/10 0935 20 86 Room Air 11/10 0934 20 88 Room Air 11/10 0819 98 Nasal 2.0L Cannula Intake & Output 11/11 1600 11/11 0800 11/11 0000 Intake Total 420 1325 Output Total Balance 420 1325 Intake, IV 300 525 Intake, Oral 120 800 Physical Exam General Appearance: Alert, Oriented X3, Cooperative Skin Temp/Moisture Exam: Warm/Dry HEENT: Atraumatic, PERRLA, EOMI Neck: Supple Cardiovascular: Normal S1, Normal S2 Lungs: Decreased breath sounds on right side compare to left. Abdomen: Soft, No Tenderness Neurological: Normal Speech, Strength at 5/5 X4 Ext, Normal Tone Extremities: No Edema Assessment/Plan Assessment: 82 YO Mohawk speaking F with PMH of COPD on nocturnal 2L O2, HTN, glaucoma, is here for evaluation of productive cough and exertional dyspnea. URI symptoms started 1 week ago, with congestion, fever (100.4), bodyaches, cough for which patient tried OTC meds (tylenol, cold and flu) without relief. She has been using her inhalers TID and is also using her oxygen throughout the day. Her dyspnea got worse today and hence family brought her to the ER. We are taking care for following problems: Acute on chronic hypoxic respiratory failure due to COPD exacerbation secondary to acute bronchitis: -Patient has past medical history of COPD and upper lobe fibrosis. He was admitted with COPD in 2012. -Patient is using 2 L of oxygen at nighttime that her baseline, she maintain saturation 98%. During daytime at home she was not using any oxygen but during hospital stay after her COPD exacerbation she is feeling comfortable using 2 L of oxygen during daytime. Yesterday her saturation at room air during daytime was 88% at rest and 86% on ambulation. -TRC nebulization as needed -Continue Symbicort and Spiriva -Continue prednisone with tapering dose. -Azithromycin oral 250mg daily to complete 5 days course. Day 5 -Her strep and Legionella antigens are negative -Continue Mucinex for cough -Possible discharge today to home if patient's renal function is normal. Her ambulatory sat on room air went down to 84%. At rest on room air her saturation was 90%. Patient needs oxygen while ambulation during daytime previously she was using oxygen just at nighttime. Thrombocytosis: -Possibly reactionary. Her platelet count was 511 on admission. -Last platelet count was 531. We will instruct the patient to follow his primary care physician and repeat her CBC for platelet count. ZENA:(improved) -Meeting the criteria of ZENA as her creatinine increased 0.3mg/dl in 48 hrs. Her baseline creatinine was 0.9 -Possibly due to dehydration. We will encourage the patient to drink more water. We will monitor her creatinine level. -Her losartan dose was decreased to 50 mg daily and amlodipine was increased to 10 mg daily to control her blood pressure. Cr improved after iv hydration and decreasing the losartan dose. -Encourage patient to drink more water. Patient received 1 bag of D5 half yesterday. -If her kidney function comes back normal then we will discharge the patient today. -Today her Cr is 1.0 History of hypertension and hyperlipidemia: -Losartan was decreased to 50mg daily due to worsening kidney function. -Amlodipine dose was increased to 10mg daily. Her blood pressure is better contol with dose adjustment. -Continue Lipitor DVT prophylaxis: Mechanical and subcutaneous Lovenox CODE STATUS: DNR/intub Problem List: 1. COPD exacerbation Pain Ratin Pain Location: none Pain Goal: Remain pain free Pain Plan: pain pathway Tomorrow's Labs & Rationales: none
[2017-11-11] MEDS ORDERED: PREDNISONE10 M2 PO ×2 (07:44→10:02)
[2017-11-11] MEDS ORDERED: AZITHROMYCIN250 M1 PO ×2 (07:45→10:02)
[2017-11-11] MEDS ORDERED: SPIRIVA18 MCG INH (07:55)
--- NOTE | 2017-11-11 08:21 | PN- Att Addend ---
Attending Addendum Attending Brief Note Patient seen and examined. Plan of care discussed with the medical team and the patient. Available lab work and radiology test reports were reviewed. Patient feels much better and denies any difficulty breathing. She denies any fever chills or chest pains. She appears comfortable and is sitting in chair. Her daughter is at the bedside. She is currently on 2 L of oxygen. Exam: General: Patient awake alert oriented without any distress CVS: S1 plus S2 without any murmur or gallops Chest: Few scattered crepitation without any wheeze. There is no respiratory distress. 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 Note the CT scan also suggested bronchiectasis. * Hypoxia * Thrombocytosis * Acute renal failure * Dehydration Plan * Continue oxygen and arrange oxygen for home * Taper prednisone over the next 5 days and completed 5 days of azithromycin * Discharge home today Current Medications Sig/Cuco Start time Last Medication Dose Route Stop Time Status Admin Acetaminophen 325 MG Q6P PRN 11/08 0200 AC PO Albuterol Sulfate 3 ML EVERY 4 HRS/AWAKE 11/08 1200 AC 11/11 INH 0755 Albuterol Sulfate 3 ML Q4H PRN 11/08 0200 AC INH Amlodipine Besylate 10 MG DAILY 11/10 09 AC 11/10 PO 1053 Amlodipine Besylate 5 MG DAILY 11/08 0900 DC 11/09 PO 0951 Atorvastatin Calcium 20 MG 1700 11/08 1700 AC 11/10 PO 1636 Azithromycin 250 MG DAILY 11/09 0900 AC 11/10 PO 11/12 1100 0852 Brimonidine Tartrate 1 GTT BID 11/08 2100 AC 11/10 OPH 2006 Budesonide/ 2 PUF BID 11/08 09 AC 11/10 Formoterol Fumarate INH 2007 Dextrose/Sodium 1,000 ML Q13H 11/10 914 DC 11/10 Chloride IV 11/10 2214 1049 Enoxaparin Sodium 40 MG DAILY 11/08 09 AC 11/10 SC 0858 Guaifenesin 600 MG Q12 11/08 0900 AC 11/10 PO 2005 Losartan Potassium 50 MG DAILY 11/10 0900 AC 11/10 PO 1055 Losartan Potassium 100 MG DAILY 11/08 0900 DC 11/09 PO 0951 Methylprednisolone 40 MG 0600,1800 11/09 1800 DC 11/10 IV 0529 Patient Medication 1 ED ONE ONE 11/10 1000 DC 11/10 [facility] ED 11/10 1001 1103 Prednisone 10 MG DAILY 11/21 09 AC PO 11/22 09 Prednisone 20 MG DAILY 11/19 0900 AC PO 11/20 09 Prednisone 30 MG DAILY 11/17 0900 AC PO 11/18 09 Prednisone 40 MG DAILY 11/15 0900 AC PO 11/16 09 Prednisone 50 MG DAILY 11/13 0900 AC PO 11/14 09 Prednisone 60 MG DAILY 11/11 0900 CAN PO 11/23 0859 Prednisone 60 MG DAILY 11/11 0900 AC PO 11/12 09 Tiotropium [place] 1 PUF DAILY 11/08 0900 AC 11/10 INH 0853 Laboratory Tests 11/11/17 0647: Sodium Pending, Potassium Pending, Chloride Pending, Carbon Dioxide Pending, Anion Gap Pending, BUN Pending, Creatinine Pending, BUN/Creatinine Ratio Pending 11/10/17 0632: Anion Gap 10, Estimated GFR 43 L, BUN/Creatinine Ratio 27.5 H 11/09/17 0612: Anion Gap 9, Estimated GFR 48 L, BUN/Creatinine Ratio 21.8, CBC w Diff NO MAN DIFF REQ, RBC 3.56 L, MCV 85.9, MCH 27.3, MCHC 31.7 L, RDW 14.0, MPV 7.4, Gran % 90.7 H, Lymphocytes % 7.2 L, Monocytes % 2.1, Eosinophils % 0, Basophils % 0 , Absolute Granulocytes 13.7 H, Absolute Lymphocytes 1.1 L, Absolute Monocytes 0.3, Absolute Eosinophils 0, Absolute Basophils 0 11/08/17 1035: pH 7.37, pCO2 58 H, pO2 116 H, HCO3 33 H, ABG O2 Sat (Measured) 98.0, P-50 ( Temp Corrected) N, Carboxyhemoglobin 0.1 L, O2 Concentration % 2LPM, O2 Delivery Method NC, Phlebotomy Draw Site RIGHT RADIAL Microbiology 11/08 1000 LOWER RESP: Respiratory Culture - CAN Cancelled: NUMBER OF SQUAMOUS CELLS INDICATES POOR QUALITY SPECIMEN 11/08 1000 LOWER RESP: Gram Stain - CAN Cancelled: NUMBER OF SQUAMOUS CELLS INDICATES POOR QUALITY SPECIMEN Vital Signs Date Time Temp Pulse Resp B/P B/P Pulse O2 O2 Flow FiO2 Mean Ox Delivery Rate 11/11 0755 95 Nasal 2.0L Cannula 11/11 0655 97.9 82 18 126/52 98 11/11 0000 93 Nasal 2.0L Cannula 11/10 2116 98.1 85 18 128/50 98 Nasal 2.0L Cannula 11/10 1618 100 Nasal 2.0L Cannula 11/10 1600 Nasal 2.0L Cannula 11/10 1438 98.1 85 18 124/50 99 Nasal 2.0L Cannula 11/10 1055 80 132/50 11/10 0937 20 95 Nasal 2.0L Cannula 11/10 0936 20 91 Nasal 2.0L Cannula 11/10 0935 20 86 Room Air 11/10 0934 20 88 Room Air Intake & Output 11/11 1600 11/11 0800 11/11 0000 Intake Total 420 1325 Output Total Balance 420 1325 Intake, IV 300 525 Intake, Oral 120 800 Total time spent in preparation for discharge plan, patient education, and CMR preparation was 35 minutes.
[2017-11-11] MEDS ORDERED: NORVASC10 M1 PO (08:39)
[2017-11-11] MEDS ORDERED: LOSARTAN POTASS50 M1 PO (08:39)
[2017-11-11] MEDS ORDERED: COZAAR50 M1 PO ×2 (09:05→10:03)
[2017-11-11] MEDS ORDERED: AMLODIPINE BESY10 M1 PO ×2 (09:05→10:03)
[2017-11-11 09:30] VITALS: BP 144/50
== END 2017-11-11 12:46 | disposition home health service (06) | DRG 140 ==
LOC: ERH 20:29 → 2NB 11-08 00:32 → ERHI 11-08 00:32 → ENRESERV 11-08 01:23 → 2NB 11-08 02:15 → ENPENDDIS 11-11 10:11 → ENTRNSPT 11-11 12:25 → EDTRNSPTSTS 11-11 12:43 → EDTRNSPT 11-11 12:43 → 2NB 11-11 12:46 → CMPTRNSPT 11-11 13:03
PROVIDERS: Physician Assistant Medical; Student in an Organized Health Care Education/Training Program
DX: J44.1 Chronic obstructive pulmonary disease with (acute) exacerbation (principal); I10 Essential (primary) hypertension; J20.9 Acute bronchitis, unspecified; Z99.81 Dependence on supplemental oxygen; J96.21 Acute and chronic respiratory failure with hypoxia; E78.5 Hyperlipidemia, unspecified; D64.9 Anemia, unspecified; N17.9 Acute kidney failure, unspecified; E86.0 Dehydration; H40.9 Unspecified glaucoma; Z66 Do not resuscitate; D69.6 Thrombocytopenia, unspecified
CPT/HCPCS: 2NBSP; 36415; 36592; 71045; 81001; 82436; 87070; 87449; 87450; 93005; 93010; 96374; 96375; J0456; J1650; J2920; J2930; J3490; J7040; J7042